=== PATIENT | male | born 1955 | race Hispanic/Latino ===

== ENCOUNTER 2017-08-02 07:50 | Day surgery (SDC) | payer BC ==
[2017-07-28 13:40] VITALS: BMI 29.5
[2017-08-02 08:27] LABS: BASO # 0.02 K/mm3 (0.0-2.0); BASO % 0.2 % (0.0-3.0); EOS # 0.2 (0.0-0.7); EOS % 1.7 % (1.5-5.0); GRAN # 6.91 (1.4-6.5); GRAN % 75.3 % (50.0-68.0); HEMOGLOBIN 15.8 g/dL (14.0-18.0); LYMPH # 1.5 (1.2-3.4); LYMPH % 16.6 % (22.0-35.0); MEAN CELL VOLUME 96.7 fl (80.0-105.0); MEAN CORPUSCULAR HEMOGLOBIN 32.1 pg (25.0-35.0); MEAN CORPUSCULAR HGB CONC 33.2 g/dl (31.0-37.0); MEAN PLATELET VOLUME 10.3 fl (7.0-11.0); MONO # 0.6 (0.1-0.6); MONO % 6.2 % (1.0-6.0); RBC 4.92 10^6/uL (3.5-6.1); RED CELL DISTRIBUTION WIDTH 13.7 % (11.5-14.5); WHITE BLOOD COUNT 9.2 10^3/ul (4.5-11.0)
[2017-08-02 08:41] LABS: BLOOD UREA NITROGEN 15 mg/dL (7-21); CALCIUM 9.7 mg/dL (8.4-10.5); GFR AFRICAN-AMERICAN > 60; GFR NON-AFRICAN AMERICAN > 60
[2017-08-02 08:47] LABS: INR 0.96 (0.93-1.08)
[2017-08-02] MEDS ORDERED: Midazolam 2 MG/2 ML VIAL ONE (09:31)
[2017-08-02] MEDS ORDERED: Lidocaine 1% Inj (20ml) ONE (09:32)
[2017-08-02] MEDS ORDERED: Lidocaine 2% Inj (20ml) ONE (09:32)
[2017-08-02] MEDS ORDERED: Oxycodone/Acetaminophen 5/325 mg Tab PO PRN (11:46)
[2017-08-02] MEDS ORDERED: Sodium Chloride 0.45% 1,000 ML IV SCH (12:00)
[2017-08-02 12:07] VITALS: BP 170/76; PULSE 64; RESP 20; TEMP 98.3; O2SAT 94
--- NOTE | 2017-08-02 17:33 | CT ---
PROCEDURE: CT guided left periaortic lymph node biopsy. HISTORY: Prostate carcinoma. Evaluate left periaortic lymph nodes for metastatic disease. PHYSICIAN(S): Dane Donaldson MD. TECHNIQUE: The relative risks and indications of the procedure were explained to the patient and consent obtained. The patient was placed prone on the CT scanner and preliminary images through the mid abdomen obtained. Conscious sedation and monitoring were provided throughout the procedure by a nurse. The patient is status post aortic stent graft placement. 2 cm lymph nodes are noted in the left periaortic area.. A left posterior approach was selected and the area prepped and draped in the usual sterile fashion. 1% Xylocaine was used to anesthetize the skin and soft tissues. A 17-gauge guiding needle was advanced into the 2 cm left periaortic lymph nodes.. Its position was confirmed with CT. Using coaxial technique, multiple core biopsies were obtained. The postprocedure images show no evidence of significant hemorrhage. IMPRESSION: 1. CT-guided left periaortic lymph node biopsy as described above.
== END 2017-08-02 13:15 | disposition home or self-care (01) ==
LOC: SDS 07:50
PROVIDERS: ATTEND Radiology Vascular & Interventional Radiology
DX: R59.0 Localized enlarged lymph nodes (principal); C61 Malignant neoplasm of prostate; I10 Essential (primary) hypertension
CPT/HCPCS: 36415; 38505; 77012; 80048; 85025; 85610; 85730; 88305; J2250; J2405; J3010; J7030